=== PATIENT | male | born 1935 | race Caucasian/White ===

== ENCOUNTER 2017-01-08 13:53 | Inpatient (IN) | payer MEDICARE ==
[~2017-01-08] VITALS: Ht 160 cm; Wt 66.9 kg
--- NOTE | ~2017-01-08 | ECH ---
Transthoracic Echocardiography Report (TTE) Demographics Patient Name JOSEFINA FLOWER Date of Study 01/09/2017 Patient Number [id number] Visit Number [id number] Date of 1935 Room Number 414 Accession Number [id number] Gender Male Age 81 year(s) Referring Nathen Olivera MD Plastic Boat Patcher Beverly Rausch Physician Nigel Rojas [facility] Physician Interpreting Anil RAM Window Treatment Installer Physician Braulio Supervising Ordering Physician Nigel Rojas MD/MLP Nurse Stress Weight Guesser Conclusions Contractility Score Summary Normal Left Ventricular contractility was noted. Summary Technically good exam. The estimated left ventricular ejection fraction is 50-55%. The left ventricle is mildly dilated . Mild to moderately dilated right ventricle with normal function. The left atrium is mildly dilated by LA volume index measurement. Bubble study was done, there is no evidence for a PFO or ASD. The right atrium is mildly dilated. There is mild aortic regurgitation by color Doppler. Mild tricuspid regurgitation by color Doppler. There is mild pulmonary hypertension. The pulmonary pressure (RVSP) is 36 mmHg. Recommendation The patient will be given the results of this study by the physician who ordered the exam. Procedure Type of Study TTE procedure:Echo Complete SF. Procedure Date Date: 01/09/2017 Start: 08:24 AM Technical Quality: Good visualization Indications:Atrial fibrillation, elevated cardiac enzymes, TIA, Congestive heart failure and Coronary artery disease. Appropriate Use Criteria: 9 Height: 63 inches Weight: 148 pounds BSA: 1.7 m Rhythm: Atrial fibrillation HR: 50 bpm BP: 138/82 mmHg M-Mode/2D Measurements LV Diastolic Dimension: 5.9 cm LV Systolic Dimension: 4.4 cm LV Septum Diastolic: 0.84 cm LV PW Diastolic: 0.84 cm AO Root Dimension: 3.25 cm Cardiac Output: 3.13 l/min LA Dimension: 4.84 cm Cardiac Index: 1.84 l/min*m RV Diastolic Dimension: 5.02 cm LA volume index: 39 ml/m LVOT: 1.95 cm LVOT VTI: 21 cm RV Base: 5 cm LV Stroke volume: 62.68 ml RV Mid: 2.9 cm LV Stroke volume index: 36.87 ml/m TAPSE: 1.8 cm TDI-S': 16 cm/s Doppler Measurements AV Peak Velocity: 1.28 m/s MV Peak E-Wave: 0.83 m/s AV Peak Gradient: 6.58 mmHg AV Mean Gradient: 3.1 mmHg LVOT Peak Velocity: 0.9 m/s AV Area (Continuity):2.12 cm AV P1/2t: 475.6 msec PV Peak Velocity: 0.79 m/s TR Velocity:2.8 m/s PV Peak Gradient: 2.52 mmHg TR Gradient:31.36 mmHg Estimated PASP: 36.36 mmHg Estimated RAP:5 mmHg Estimated RVSP: 36 mmHg RA Area: 21.22 cm Findings Left Ventricle The left ventricle is mildly dilated . Diastolic function indeterminate due to patient's arrhythmia. Right Ventricle Mild to moderately dilated right ventricle with normal function. Left Atrium The left atrium is mildly dilated by LA volume index measurement. Informed consent was obtained, bubble study was done, there is no evidence for a PFO or ASD. Right Atrium The right atrium is mildly dilated. Mitral Valve Normal mitral valve structure and function. Mild mitral regurgitation by color Doppler. Aortic Valve Normal aortic valve structure and function. There is mild aortic regurgitation by color Doppler. Tricuspid Valve Normal tricuspid valve structure and function. Mild tricuspid regurgitation by color Doppler. There is mild pulmonary hypertension. The pulmonary pressure (RVSP) is 36 mmHg. Pulmonic Valve The pulmonic valve is not well visualized. Trivial pulmonic valve regurgitation by color Doppler. Pericardial Effusion No evidence of pericardial effusion. Miscellaneous Visualized portions of the aortic root and ascending aorta appear normal in size. Pleural Effusion No evidence of pleural effusion. Contractility Score LV regional wall motion:(0-Non visualized 1-Normal 2-Hypokinesis 3-Akinesis 4-Dyskinesis 5-Aneurysm) Signature
--- NOTE | 2017-01-10 13:11 | ER ---
ADMIT: 01/08/2017 RM/LOC: 414 [facility] MR#: [id number] [address] [address] [place] [address] Emergency Room Report SEX: M AGE: 81 : 1935 DATE: 01/08/2017 HISTORY OF PRESENT ILLNESS: An 81-year-old, severely demented, senior living resident, sent to the emergency department because he "slumped to the left side" while at the dining room table. Please note, the patient is unable to provide any history as he has severe dementia. PAST MEDICAL HISTORY: Provided by his brother, it is that of a heart surgery in the 1970s for "hole in his heart." He states he is otherwise healthy. PHYSICAL EXAMINATION: GENERAL: Reveals an 81-year-old gentleman, in no acute distress, with incoherent speech, but not complaining of any pain. He is sitting upright on the gurney and is moving his left upper extremity, which was the extremity they noted to be flaccid while he is leaning to the left side. HEENT: He is unable to cooperate with the full neuro exam; however, his EOMs are intact. His pupils are equal and reactive. CARDIOVASCULAR: Irregular rate, irregular rhythm. No murmurs detected. LUNGS: Have coarse sounds on the right. ABDOMEN: Soft. EXTREMITIES: Without edema. EMERGENCY ROOM COURSE: A CT scan of the head showed no acute findings and EKG, which showed atrial fibrillation. CBC was unremarkable. Chemistries; potassium of 3.6, glucose 138. EKG, atrial fibrillation. Chest x-ray revealed right perihilar infiltrate and a left-sided effusion. His troponin was 0.319. His BNP 900, his TSH 4.89. The patient is being admitted with apparently new-onset atrial fibrillation and an elevated troponin. Again please note, the patient is unable to provide any history or complaints secondary to profound dementia. He will have a CT scan prior to his arrival on the general medical floor to determine the etiology of the chest x-ray infiltrate. Douglas Bae MD/ kym JOB #: [id number] CC: Jarod Sena MD, Attending Physician Jarod Sena MD, Family Physician
--- NOTE | 2017-01-10 17:01 | CO ---
ADMIT: 01/09/2017 RM/LOC: 414 [facility] MR#: [id number] [address] [address] CHINGJOSEFINA [place] [address] Consultation SEX: M AGE: 81 : 1935 DATE OF CONSULTATION: 01/09/2017 ATTENDING PHYSICIAN: Jarod Sena CONSULTING PHYSICIAN: Deacon Grant MD REASON FOR CONSULTATION: Question of TIA. HISTORY OF PRESENT ILLNESS: The patient is an 81-year-old gentleman with advanced dementia, who resides in a prison, developed a fever over the weekend. He was worsening clinically, was more confused. At the time that they were deciding where to send him to the ER, the noted that he becomes slumped over to the left side and drooled. We confirmed by phone call with prison that there was no loss of consciousness. Apparently, the left- sided weakness, if there was any, resolved by the arrival to the ER. Please see the note by Dr. Douglas Bae. Initial CT scan did not reveal any acute events but showed extensive chronic white matter changes from small vessel disease. On respiratory panel, he was found to have high CVPB. He had mild elevation of troponin and CK. His vitamin B12 is 164, A1c is 6.7. Lipid panel, LDL is 76. He was found to be in atrial fibrillation. This is new for him. Cardiology was consulted. The patient was started on Eliquis alongside with continued aspirin 81. 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 MEDICATIONS: On outpatient basis: 1. Aspirin. 2. Synthroid. 3. Zyprexa. FAMILY HISTORY: Unable to obtain from the patient secondary to his dementia. ALLERGIES: NO KNOWN DRUG ALLERGIES. REVIEW OF SYSTEMS: Unable to obtain from the patient because of his dementia. SOCIAL HISTORY: He lives in a prison and he is not able to give us more detail about his past habit. PHYSICAL EXAMINATION: VITAL SIGNS: Temperature 98.7, heart rate 61, respirations 20, blood pressure 144/75, 94% on room air saturation. HEAD: Normocephalic, atraumatic. NECK: Supple. CHEST: Normal respiratory rises. CARDIOVASCULAR: Irregular. ABDOMEN: Nondistended. EXTREMITIES: No clubbing or cyanosis. ADMIT: 01/09/2017 RM/LOC: 414 [facility] MR#: [id number] [address] [address] [place] [address] Consultation SEX: M AGE: 81 : 1935 NEUROLOGICAL EXAMINATION: The patient is awake and alert; however, oriented only to self. He is able to follow maybe 20% of simple step commands. He is mumbling incoherently for the most part. Cranial nerves examination; did not note any visual field defect, but it was hard to assess. Extraocular muscles are intact. Pupils are equal, reactive. Facial sensation is normal to temperature. Face is symmetric. Hearing to voice intact. Uvula midline. Palatal arch is symmetric. Shoulder shrug symmetric. Tongue is midline, fairly moveable. Motor examination; full strength throughout. No drift. Fine motor movements are intact on both sides. Normal tone. Sensory to temperature nonlateralizing. Reflexes; brisk, symmetric in upper extremities, slightly reduced in knees and absent in ankles. Toes are downgoing bilaterally. Coordination difficult to assess as he was not comprehending much of the commands for this part of examination. Gait; deferred. LABS AND IMAGING: Reviewed in HPI. ASSESSMENT AND PLAN: Episode of slumping over and drooling in a patient with encephalopathy from RSV/febrile illness and severe dementia. This could be just from his encephalopathy or it could have been transient ischemic attack. However, the patient is already on maximized medical therapy with Eliquis and aspirin together. As per his earlier result, pravastatin to be started tonight. TTE is being obtained by Cardiology. We will follow up on results. For completeness of the workup, I will probably repeat the CT scan to see if there is any interval development. I do not think that the patient would tolerate MRI due to his dementia. The next test will be carotid duplex to see if there is any carotid stenosis. Thank you very much for this interesting consultation. We will continue to follow. Deacon Grant MD/ kym JOB #: [id number] CC: Jarod Sena, Attending Physician Jarod Sena, Family Physician
--- NOTE | 2017-01-10 21:21 | HP ---
ADMIT: 01/08/2017 RM/LOC: 414 [facility] MR#: [id number] 2620 [facility] [address] [place] [id number] [place] [address] History and Physical SEX: M AGE: 81 : 1935 DATE OF SERVICE: CHIEF COMPLAINT: Fever, increased confusion from baseline. HISTORY OF PRESENT ILLNESS: Sedrick is an 81-year-old male, who normally follows with Dr. Sena, resides at [facility], has a history of advanced Alzheimer's dementia, was brought in today with the above complaints. Apparently, they found Sedrick slumped to his left side. He has been having fevers slightly over 100 degrees over the last 6 hours or so. They were also worried that he possibly had a stroke as he did not seem like he was using his left side as much. Very difficult to get information from the patient given his baseline Alzheimer's dementia. At any rate, he was evaluated by Dr. Kathia guzman in the Emergency Department. Initial head CT was negative. Labs were overly unimpressive with no source for possible infection except for possible right lower lobe infiltrate on the chest x-ray. It was not felt that there were any acute deficits neurologically down in the Emergency Department. Therefore, stroke order set was not initiated. They did find atrial fibrillation which was new onset for the patient apparently as well as slightly low thyroid. We were asked to admit the patient for further workup, management, and observation. PAST MEDICAL HISTORY: Difficult to obtain given his mental status. Previous history of heart surgery of unknown type. He is status post TURP. Advanced Alzheimer's dementia with behavioral disorder. Hypothyroidism. 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 MEDICATIONS: Include: 1. Aspirin 81 mg daily. 2. Olanzapine 5 mg half tab b.i.d. 3. Levothyroxine 25 mcg daily. 4. Lorazepam 0.5 mg every 6 hours as needed for agitation and anxiety. ALLERGIES: NONE THAT I AM AWARE. FAMILY HISTORY: Unobtainable secondary to mental status. SOCIAL HISTORY: The patient resides at [facility]. He does not consume alcohol regularly. No tobacco use. The patient was previously being living independently prior to 12/03/2015, after getting lost driving and being found up in [place], [place]. He was subsequently admitted and has been residing at [facility]. He has a brother who is his guardian and power of substation engineer. REVIEW OF SYSTEMS: A 10-point review of systems obtained. The patient mostly answers that he does not know to most of my questions. He denies any pain. No other complaints. PHYSICAL EXAMINATION: VITAL SIGNS: Blood pressure 147/87, pulse 68, respirations 20, temperature 100.9, 94% on room air. ADMIT: 01/08/2017 RM/LOC: 414 [facility] MR#: [id number] [address] [place] [id number] [place] [address] History and Physical SEX: M AGE: 81 : 1935 GENERAL: He is alert, arousable, and does not appear in any acute distress. Confused, oriented x0. HEENT: Pupils are equal, round, and reactive. Extraocular muscles intact. Throat clear. Trachea midline. HEART: Irregular. No murmurs. LUNGS: Clear to auscultation bilaterally. ABDOMEN: Soft. EXTREMITIES: Without any significant edema. He does have amputated fingers. SKIN: Without any significant findings. NEUROLOGICAL: No focal deficits that I can ascertain but very difficult exam. He is certainly cognitively impaired and cannot answer most of my questions. LABORATORY AND X-RAY DATA: White blood count 6.2, hemoglobin 12.7, platelets 112. Potassium 3.6. Creatinine 1.1. Magnesium 2.1. Troponin elevated at 0.319. ProBNP elevated at 900. Thyroid slightly high at 4.89. INR normal at 1.14. Drug abuse negative. Chest x-ray showed right infiltrate. Chest CT scan: Per ER just showed enlarged pulmonary artery. Otherwise, no significant infiltrates. ASSESSMENT: An 81-year-old with: 1. Encephalopathy, unknown source, possibly toxic/infectious. 2. Questionable transient ischemic attack. 3. Fever, unknown source. 4. Atrial fibrillation, new onset versus newly diagnosed. 5. Elevated troponin, mild. 6. Elevated proBNP, with history of congestive heart failure, unknown baseline, but does not have symptoms of acute heart failure at this time. 7. Hypokalemia, mild. 8. Thrombocytopenia, mild. 9. Hypothyroidism. 10.History of coronary artery disease. 11.Benign prostatic hypertrophy. ADMIT: 01/08/2017 RM/LOC: 414 [facility] MR#: [id number] [address] [place] [id number] [place] [address] History and Physical SEX: M AGE: 81 : 1935 12.History of advanced Alzheimer's dementia with behavioral disorder. PLAN: We will admit patient to telemetry. Questionable for TIA versus infectious source for his encephalopathy. CT scan was negative of the head. We will start on higher dose aspirin, increase his thyroid medication as well, start Rocephin. Respiratory viral panel to evaluate for any viral sources of his infection. We will monitor closely and see if we can find the source of this. Unclear if he is back at baseline. Dr. Sena should resume care tomorrow and be able to give us a better idea and decide at that point if he wants to proceed with Neurology consultation and further imaging with MR. The patient is currently stable. Heparin for DVT prophylaxis. The patient is a DNR/DNI. Bob Manning MD/ kym JOB #: [id number] CC: Jarod Sena, Attending Physician Jarod Sena, Family Physician
--- NOTE | 2017-01-13 08:13 | CO ---
ADMIT: 01/09/2017 RM/LOC: 414 [facility] MR#: [id number] [address] [address] CHINGJOSEFIN[place] [address] Consultation SEX: M AGE: 81 : 1935 DATE OF CONSULTATION: 01/09/2017 ATTENDING PHYSICIAN: Jarod Sena CONSULTING PHYSICIAN: Uriah Hunt MD REASON FOR CONSULTATION: New diagnosis of atrial fibrillation and mildly elevated troponin. HISTORY OF PRESENT ILLNESS: The patient is a pleasant 81-year-old male with reported history of heart surgery in the past, but unknown type. He has Alzheimer's dementia and is unable to give any history, so all history, social, family, HPI, and past medical history is taken from old records. He lives in a snf, was reported to have an episode of slumping to the left, was found to be in atrial fibrillation with elevated troponin when brought into the emergency room. PAST MEDICAL HISTORY: Per old records: TURP, heart surgery of unknown type, Alzheimer's dementia, hypothyroidism, traumatic amputation of first, second, and third digit of the left hand. FAMILY HISTORY: Noncontributory. MEDICATIONS: 1. Aspirin 325 mg one p.o. daily. 2. Synthroid 0.05 mg p.o. daily. 3. Zyprexa 2.5 mg b.i.d. ALLERGIES: NO KNOWN ALLERGIES. REVIEW OF SYSTEMS: Unable to obtain due to patient's mental status. SOCIAL HISTORY: Lives in a snf, otherwise unknown. PHYSICAL EXAMINATION: Per Dr. Hunt: VITAL SIGNS: Temp 99.1, pulse 69, respirations 18, blood pressure 138/82, and O2 saturation 94%. SKIN: [place], warm and dry. EYES: Sclerae clear. No xanthelasmas. ENT: Oral mucosa is pink and moist. No jugular venous distention or carotid bruits. CHEST: Respirations are even and unlabored. Lungs are clear to auscultation. HEART: Irregularly irregular. ABDOMEN: Soft and nontender. MUSCULOSKELETAL: Gait is normal. EXTREMITIES: Peripheral pulses palpable. No clubbing, cyanosis or edema. PSYCHIATRIC: Alert and oriented. Mood and affect are appropriate. GENERAL: Patient nonverbal on exam. ADMIT: 01/09/2017 RM/LOC: 414 [facility] MR#: [id number] [address] [address] [facility] [place] [address] Consultation SEX: M AGE: 81 : 1935 DIAGNOSTIC DATA: Echocardiogram is pending. EKG demonstrates atrial fibrillation with controlled ventricular response. Hemoglobin A1c is 6.7. Blood cultures are no growth to date. Sodium of 141, potassium 3.6, chloride 106, carbon dioxide 26, BUN of 17, glucose 107, and creatinine 0.9. Total cholesterol 140, triglycerides of 71, AST 28, ALT of 20, mag of 1.7. HDL 50, LDL of 76. CK of 405, MB of 3.0, and troponin of 1.166. Vitamin B12 of 164 with a folate greater than 20. White blood count of 6.7 with red blood count of 4.10, hemoglobin of 12.9, hematocrit 39.2 with a platelet count of 99. Respiratory panel is positive for RSV. Chest CT shows pulmonary artery hypertension with main pulmonary artery measuring 4 cm, old granulomatous disease, coronary artery disease. Lactic acid was 1.6. His first troponin was 0.319, second was 0.271, and third was 0.166. ASSESSMENT: Per Dr. Hunt. 1. Atrial fibrillation. 2. Abnormal troponin. 3. Dementia of Alzheimer's. PLAN: Uncertain in regard to his positive troponin, I would recommend conservative management. I do not feel he has a good invasive candidate at this time because of his advanced Alzheimer's dementia. I do agree with anticoagulation and along with a low-dose baby aspirin. I would consider low- dose beta bruna depending on his rate control of atrial fibrillation. We will just pursue a rate and anticoagulation strategy at this time. We will continue to monitor symptoms and diagnostics and amend our plan accordingly. Thank you for allowing us to participate in the care of this patient. LARISA Williamson / Teagan. Wyatt Hunt MD / kym JOB #: [id number] CC: Jarod Sena, Attending Physician Jarod Sena, Family Physician
[2017-01-13] MEDS ORDERED: ASA CHILDREN'S81 MG PO (15:11)
[2017-01-13] MEDS ORDERED: ELIQUIS5 MG PO (15:11)
[2017-01-13] MEDS ORDERED: SYNTHROID DPS0.05 MG PO (15:12)
[2017-01-13] MEDS ORDERED: PRAVACHOL40 MG PO (15:12)
[2017-01-13] MEDS ORDERED: ZYPREXA5 MG PO (15:12)
[2017-01-13] MEDS ORDERED: ZYPREXA2.5 MG PO (15:12)
[2017-01-13] MEDS ORDERED: TYLENOL DPS325 MG PO (15:13)
[2017-01-13] MEDS ORDERED: ATIVAN-DPS0.5 MG PO (15:13)
--- NOTE | 2017-04-01 15:45 | DS ---
ADMIT: 01/09/2017 RM/LOC: 414 [facility] MR#: [id number] [address] [address] MAINE FLOWERALD [place] [address] Discharge Summary SEX: M AGE: 81 : 1935 ADMISSION DATE: 01/09/2017 DISCHARGE DATE: 01/12/2017 DIAGNOSES: 1. RSV (respiratory syncytial virus) bronchiolitis. 2. New onset atrial fibrillation. 3. Alzheimer's type dementia. 4. Hypothyroidism. 5. B12 deficiency. 6. Hypokalemia. 7. BPH (benign prostate hypertrophy). 8. TIA (transient ischemic attack). REASON FOR ADMISSION: This is an 81-year-old white male with advanced Alzheimer's type dementia who normally resides at [facility] who presented with some left-sided weakness. By the time he got the Emergency Room, his deficit had improved. He had a negative CT scan. He was found to be in new onset atrial fibrillation and therefore was admitted for further workup and stabilization. HOSPITAL COURSE: He was admitted on 01/08/2017. Cardiac enzymes ordered. He did have a mild bump in his troponin. STEVEN was consulted. DNR/DNI status was continued per his previous orders. He was having some URI type symptoms so Rocephin was started and viral respiratory panel was ordered, which ultimately became positive for RSV. On 01/09, the patient still was a bit drowsy, but no events through the night. Magnesium was a little bit low so we did replace that IV. Cardiology was consulted as was Neurology. Eliquis was ordered. PT and speech therapy were also ordered. Speech Therapy recommended nectar thickened liquids and pureed diet. On 01/10, we did evaluate things again. He was doing fine from a weakness standpoint so we discontinued the repeat CT scan as clinically he had improved and due to his severe dementia, we also discontinued his neuro checks. I did call and discuss the plan of care with his brother and he felt that he wanted to be the least aggressive as possible. Cardiology discontinued his subq heparin and discontinued his telemetry. We did ultimately lose the IV so we changed the Rocephin IM. On 01/11, he was alert, denied pain, just was getting some physical therapy. When I have did make rounds, we felt that he was stable for transfer back to [facility] with ultimately perhaps hospice at some point. Speech Therapy re-evaluated and was concerned about possible aspiration and was unsafe for p.o. intake. However, again, I did speak with his brother and they requested no heroic interventions and no feeding tube and wanted him to be able to the eat for pleasure. So we did hold on discharge as [facility] was not certain they could offer his needs. On 01/12, he did have a little bit of agitation, so we did increase his afternoon dose of olanzapine. Social Work was assisting us ADMIT: 01/09/2017 RM/LOC: 414 [facility] MR#: [id number] [address] [place] [id number] [place] [address] Discharge Summary SEX: M AGE: 81 : 1935 in placement options. Ultimately, was found to have a bed at [facility] in [place]. His discharge instructions include: 1. Aspirin 81 mg daily. 2. Eliquis 5 mg b.i.d. 3. Pravachol 40 mg at bedtime. 4. Synthroid 0.05 mg daily. 5. Zyprexa 2.5 mg in the morning and 5 mg in the afternoon. 6. Ativan 0.5 mg q.6 hours p.r.n. 7. Tylenol 325 mg 2 tabs q.4 hours p.r.n. 8. Levothyroxine 50 mcg daily. 9. No further hospital transfers. 10.Follow up with MD in [place] per patient's choice p.r.n. Jarod Sena MD/ ailyn JOB #: [id number] CC: Jarod Sena MD, Attending Physician Jarod Sena MD, Family Physician
== END 2017-01-12 15:19 | DRG 308 ==
LOC: ER 13:53 → 4PCU 15:32
PROVIDERS: ADMIT Family Medicine
DX: I48.91 Unspecified atrial fibrillation (principal); G93.40 Encephalopathy, unspecified; D69.6 Thrombocytopenia, unspecified; G30.9 Alzheimer's disease, unspecified; F02.81 Dementia in other diseases classified elsewhere, unspecified severity, with behavioral disturbance; G45.9 Transient cerebral ischemic attack, unspecified; J21.0 Acute bronchiolitis due to respiratory syncytial virus; E53.8 Deficiency of other specified B group vitamins; E03.9 Hypothyroidism, unspecified; R79.89 Other specified abnormal findings of blood chemistry; E87.6 Hypokalemia; I25.10 Atherosclerotic heart disease of native coronary artery without angina pectoris; N40.0 Benign prostatic hyperplasia without lower urinary tract symptoms; Z66 Do not resuscitate; Z89.022 Acquired absence of left finger(s); Z79.82 Long term (current) use of aspirin